=== PATIENT | male | born 1950 | race Caucasian/White ===

== ENCOUNTER 2019-10-17 06:19 | Day surgery (SDC) | payer MEDICARE ==
--- NOTE | 2019-10-14 13:13 | HP ---
Date is 10/17/2019. HISTORY OF PRESENT ILLNESS: The patient is a 69-year-old male, who fell after misstepping some steps on 10/06/2019, sustaining acute flexion injury to his extended left knee. He felt a pop and immediate pain and swelling. He was seen in the emergency room and referred to my office. He has been wearing a knee immobilizer and taking Tylenol No. 3. He continues to have pain and difficulty moving his knee. No previous knee problems. 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 CURRENT MEDICATIONS: Include: 1. Amlodipine. 2. Rosuvastatin. 3. Lisinopril. 4. Omeprazole. 5. Flomax. 6. Multivitamins. 7. Low-dose aspirin. ALLERGIES: HE HAS NO KNOWN ALLERGIES. FAMILY HISTORY: Otherwise, unremarkable. SOCIAL HISTORY: Otherwise, unremarkable. REVIEW OF SYSTEMS: Otherwise, unremarkable. PHYSICAL EXAMINATION: GENERAL: Reveals a healthy male. HEENT: Unremarkable. NECK: Supple. CHEST: Clear. HEART: Regular rate and rhythm. ABDOMEN: Soft and nontender. RECTAL: Deferred. GENITAL: Deferred. EXTREMITIES: Pertinent findings in the left lower extremity and left knee. There are diffuse swelling and ecchymosis extending from the knee to the groin, both anteriorly and medially. No signs of compartment syndrome. There appears to be patella baja. There is palpable defect in the quadriceps proximal to the patella. He is unable to straight leg raise or extend his knee actively. Motion is limited secondary to pain. There is no obvious instability. There is no pain with range of motion of his hip. Neurovascular exam is intact. Pulses are 2+. DIAGNOSTIC STUDIES: X-rays of the left knee reveal no bony abnormalities. There is diffuse anterior soft tissue swelling. There is questionable patella baja. IMPRESSION: Ruptured left quadriceps tendon. PLAN: Surgical repair. The nature of the surgery, length of recovery, and potential complications such as infection, loss of motion, incomplete relief, neurovascular injury, weakness, rupture of the repair, need for additional treatment, and repeat surgery have been discussed in detail. Job ID: [id number]
[2019-10-14 13:22] VITALS: BMI 29.2
[2019-10-17] MEDS ORDERED: Fentanyl 100 MCG/2 ML VIAL ONE ×2 (06:21→07:13)
[2019-10-17 06:55] LABS: #Eosinphils 0.1 thou/uL (0.0-0.7); #Monocytes 0.6 thou/uL (0.11-0.59); %Basophils 0.2 % (0.0-1.0); %Eosinophils 1.3 % (0.0-10.0); %Lymphocytes 25.6 % (21.0-51.0); %Neutrophils 64.8 % (42.0-75.0); Hemoglobin 13.3 g/dL (14.0-18.0); Mean Corpuscular HGB CONC 34.9 g/dL (32.0-36.0); Mean Corpuscular Volume 88.8 fL (78.0-98.0); Mean Platelet Volume 6.5 fL (7.4-10.4); Platelet Count 228 thou/uL (130-400); RBC Distribution Width 12.4 % (11.5-14.5); Red Blood Cell (RBC) Count 4.29 mill/uL (4.70-6.10); White Blood Cell (WBC) Count 7.7 thou/uL (4.8-10.8)
[2019-10-17 07:06] LABS: Anion Gap 14 mmol/L (10-20); BUN (Urea Nitrogen) 23 mg/dL (8.4-25.7); Calc. Creatinine Clearance 74 mL/min (70-130); Calcium 9.3 mg/dL (7.8-10.44); Carbon Dioxide 24 mmol/L (23-31); Chloride 103 mmol/L (98-107); Estimated GFR-MDRD 71; Glucose 101 mg/dL (80-115); Potassium 3.9 mmol/L (3.5-5.1); Sodium 137 mmol/L (136-145)
[2019-10-17] MEDS ORDERED: Midazolam HCl 2 mg/2 ml Vial ONE (07:13)
[2019-10-17] MEDS ORDERED: Dexamethasone 4 mg/ml Vial ONE (07:57)
[2019-10-17] MEDS ORDERED: Promethazine HCl 25 MG/ML VIAL IM PRN (09:06)
[2019-10-17] MEDS ORDERED: Ondansetron HCl/PF 4 MG/2 ML Vial IVP PRN (09:06)
[2019-10-17] MEDS ORDERED: Morphine Sulfate 2 MG/ML SYRINGE SLOW IVP PRN (09:06)
[2019-10-17] MEDS ORDERED: HYDROmorphone 2 MG/ML VIAL SLOW IVP PRN (09:06)
[2019-10-17] MEDS ORDERED: Promethazine HCl 25 MG/ML VIAL SLOW IVP PRN (09:06)
[2019-10-17] MEDS ORDERED: PACU-Morphine 4MG/ML VIAL SLOW IVP PRN (09:06)
[2019-10-17] MEDS ORDERED: Meperidine HCl/PF 25 MG/ML VIAL SLOW IVP PRN (09:06)
--- NOTE | 2019-10-17 10:48 | OP ---
DATE OF PROCEDURE: 10/17/2019 RN REGISTRY: Sabra Orozco PA-C ANESTHESIA: General plus femoral nerve block. PREOPERATIVE DIAGNOSIS: Ruptured quadriceps femoris, left leg. POSTOPERATIVE DIAGNOSIS: Ruptured quadriceps femoris, left leg. PROCEDURE PERFORMED: Repair of quadriceps tendon, left knee. OPERATIVE FINDINGS: There was essentially complete disruption of quadriceps tendon from the patellar attachment and it also involving the medial and lateral retinaculum. There was one small portion inferior to the bulk of the quadriceps tendon, which was stretched out and still attached to the patella, but at least 90% to 95% of the tendon was totally torn. The small part that was still remaining appeared to be stretched out nonfunctional and I elected to detach this and reattach with the bulk of the repair. DESCRIPTION OF PROCEDURE: After satisfactory anesthesia was induced in supine position, sequential compression device was placed on the nonoperative leg throughout the procedure. The left leg was then prepped and draped in routine sterile fashion. The leg was elevated and exsanguinated with an Esmarch bandage , and the tourniquet was inflated to 300 mmHg. A longitudinal midline incision was made, carried down through the subcutaneous tissues. Bleeding points were controlled with Bovie cautery. Immediately after incising the deep fascia, large hematoma was encountered and the above findings noted. The hematoma was evacuated and using sharp and blunt dissection, the above pathology was identified. The ends of the tendon were freshened as well with the superior articular surface, and the small remaining strand of quadriceps tendon was debrided inferiorly and portion of this was excised as it was stretched out nonfunctional. The wound was thoroughly irrigated, and all hematoma evacuated. Two heavy FiberWire sutures were then weaved into the tendon and then brought out through drill holes in the patella. Holding the extension, the sutures were tied, bring the quadriceps tendon back down to superior surface of the patella. Then, the medial and lateral retinaculum and periosteum over the superior patella were then repaired with multiple sutures of interrupted #2 Vicryl. This appeared to give good stable repair. The knee could be flexed to 90 degrees without extensive tension on the suture line. The wound was again thoroughly irrigated. The subcutaneous tissues were closed with interrupted 2-0 Vicryl, and the skin was closed with a staple gun. A sterile bulky compressive dressing was applied, and the tourniquet was deflated after 44 minutes. The foot promptly pinked up, and the patient was placed back into his knee immobilizer and awakened, taken to the recovery room in stable condition. There were no apparent intraoperative complications. The estimated blood loss was negligible. The patient will be discharged home in satisfactory condition, instructed on ice elevation, and ambulation with crutches, partial weightbearing. He was instructed on home program of isometrics of his quadriceps and hamstrings and calf pumps and assisted straight leg raises with the knee immobilizer, but no active range of motion. He will use a knee immobilizer at all times except for skin care and no motion of his knee. He was given a prescription for [place] 10 for pain, 60 tablets and also Toradol 10 mg q.i.d. for 5 days. He will be rechecked in my office in approximately 2 weeks or sooner if there are any problems prior to that time. Job ID: [id number] MTDD
--- NOTE | 2019-10-17 15:29 | EKG ---
Test Reason : PREOP Blood Pressure : / mmHG Vent. Rate : 072 BPM Atrial Rate : 072 BPM P-R Int : 146 ms QRS Dur : 086 ms QT Int : 392 ms P-R-T Axes : 037 -24 -03 degrees QTc Int : 429 ms Normal sinus rhythm Inferior infarct , age undetermined cannot be excluded Abnormal ECG Confirmed by CAMILLA PATEL ([id number]) on 10/17/2019 3:28:36 PM Referred By: MURTAZA Confirmed By:CAMILLA PATEL
== END 2019-10-17 12:05 | disposition home or self-care (01) ==
LOC: SDC 06:19
PROVIDERS: ATTEND Orthopaedic Surgery
PROC: 0LQM0ZZ Repair Left Upper Leg Tendon, Open Approach (ICD-10-PCS; principal; 2019-10-17)
DX: S76.112A Strain of left quadriceps muscle, fascia and tendon, initial encounter (principal); I10 Essential (primary) hypertension; H91.8X2 Other specified hearing loss, left ear; Z79.1 Long term (current) use of non-steroidal anti-inflammatories (NSAID); Z79.82 Long term (current) use of aspirin; Z79.899 Other long term (current) drug therapy; W10.8XXA Fall (on) (from) other stairs and steps, initial encounter
CPT/HCPCS: 27385; 80048; 85025; 93005; 97116; 97139; C1713; 93010; J0690; J1100; J2250; J3010